=== PATIENT | female | born 1975 | race American Indian/Alaskan Native ===

== ENCOUNTER 2017-04-23 13:44 | Emergency (ER) | payer OTHER ==
--- NOTE | 2017-04-23 14:24 | C.PDOC ---
History Of Present Illness 42 year old female presents to the ED for evaluation of left-sided chest pain which began yesterday and dry, nonproductive cough which began today. Patient describes her pain as sharp and tight and also reports left arm heaviness. Patient admits she recently underwent drama at work and been under a lot of emotional stress. Patient reports loss of appetite, headache, generalized weakness and shortness of breath when laying down. She denies taking medicine for her symptoms as well as fever, chills, palpitations, direct injuries. Patient has not taken any medicine for her pain. Time Seen by Provider: 04/23/17 14:23 Chief Complaint (Nursing): Chest Pain History Per: Patient History/Exam Limitations: no limitations Onset/Duration Of Symptoms: Hrs Current Symptoms Are (Timing): Still Present Severity: Mild Additional History Per: Patient Past Medical History Reviewed: Historical Data, Nursing Documentation, Vital Signs Vital Signs: Last Vital Signs Temp 98.0 F 04/23/17 16:46 Pulse 83 04/23/17 16:46 Resp 18 04/23/17 16:46 BP 130/75 04/23/17 16:46 Pulse Ox 99 04/25/17 19:49 - Medical History PMH: No Chronic Diseases Surgical History: Family History: States: Unknown Family Hx - Social History Hx Alcohol Use: Yes Hx Substance Use: No Review Of Systems Constitutional: Positive for: Weakness, Other (loss of appetite ). Negative for : Fever Cardiovascular: Positive for: Chest Pain (left-sided ). Negative for: Palpitations Respiratory: Positive for: Cough, Shortness of Breath. Negative for: Sputum Musculoskeletal: Positive for: Arm Pain (left) Neurological: Positive for: Headache Physical Exam - Physical Exam Appears: Non-toxic Skin: Normal Color, Warm, Dry Head: Atraumatic, Normacephalic Eye(s): bilateral: Normal Inspection Oral Mucosa: Moist Neck: Supple Chest: Symmetrical, No Deformity, Tenderness (left upper chest wall ) Cardiovascular: Rhythm Regular, No Murmur Respiratory: Normal Breath Sounds, No Rales, No Rhonchi, No Wheezing Extremity: No Normal ROM (limited, secondary to pain with abduction of left shoulder), Capillary Refill (less than 2 seconds ), No Deformity, No Swelling, Other (muscle spasm to left arm ) Neurological/Psych: Oriented x3, Normal Speech Gait: Steady ED Course And Treatment - Laboratory Results Result Diagrams: 04/23/17 15:00 04/23/17 15:00 Lab Interpretation: No Acute Changes ECG: Interpreted By Me, Viewed By Me ECG Rhythm: Sinus Rhythm ECG Interpretation: No Acute Changes Interpretation Of ECG: NS at 93 bpm with noraml axis, no ST schanges or ischemic findings O2 Sat by Pulse Oximetry: 99 (on RA) Pulse Ox Interpretation: Normal - Other Rad CXR X-Ray: Interpreted by Me, Viewed By Me, Read By Radiologist Interpretation: HISTORY: chest pain, cough. COMPARISON: No prior. TECHNIQUE : Chest PA and lateral. FINDINGS: LUNGS: No active pulmonary disease. PLEURA: No significant pleural effusion identified. No pneumothorax apparent. CARDIOVASCULAR: Normal. OSSEOUS STRUCTURES: No significant abnormalities. VISUALIZED UPPER ABDOMEN: Normal. OTHER FINDINGS: None. IMPRESSION: No active disease. Medical Decision Making Medical Decision Making: Impression: 42 year old female with left upper chest wall pain, dry cough Plan: * Bloodwork * UA * CXR * Lactated Ringers IV * reassess and disposition Progress: Bloodwork, UA, CXR ordered and reviewed. Lactated Ringers IV administered. All labs reviewed and unremarkable. CXR shows no acute disease Patient remained well in no distress. No EKG changes, no arrhythmia on satellite project site monitor. clinical scenario unlikely for ACS or PE. Patient is stable for discharge. Disposition Counseled Patient/Family Regarding: Studies Performed, Diagnosis, Need For Followup - Disposition Disposition: HOME/ ROUTINE Disposition Time: 16:26 Condition: GOOD Additional Instructions: Your labs, EKG and chest xray were normal Please take Aspirin, Tylenol or Advil for any pain you may have Follow up with your primary doctor for further evaluation Return to the emergency department at any time if symptoms persist or worsen.Return to the emergency department at any time if symptoms persist or worsen. 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 - Scribe Statement The provider has reviewed the documentation as recorded by the Scribe (Viki Johnson) All medical record entries made by the Scribe were at my direction and personally dictated by me. I have reviewed the chart and agree that the record accurately reflects my personal performance of the history, physical exam, medical decision making, and the department course for this patient. I have also personally directed, reviewed, and agree with the discharge instructions and disposition.
[2017-04-23] MEDS ORDERED: Lactated Ringer's 500 ML IV ONE (14:47)
[2017-04-23 15:06] LABS: BASO # 0.1 K/uL (0.0-0.2); EOS # 0.2 K/uL (0.0-0.7); EOS % 2.6 % (0.0-4.0); HEMATOCRIT 41.8 % (34.0-47.0); LYMPH # 2.9 K/uL (1.0-4.3); LYMPH % 41.4 % (20.0-40.0); MEAN CELL VOLUME 89.1 fL (81.0-99.0); MEAN CORPUSCULAR HEMOGLOBIN 29.9 pg (27.0-31.0); MEAN CORPUSCULAR HGB CONC 33.6 g/dL (33.0-37.0); MEAN PLATELET VOLUME 8.3 fL (7.2-11.7); MONO # 0.6 K/uL (0.0-0.8); MONO % 8.4 % (0.0-10.0); RED CELL DISTRIBUTION WIDTH 14.4 % (11.5-14.5); WHITE BLOOD COUNT 7.1 K/uL (4.8-10.8)
--- NOTE | 2017-04-23 15:06 | RAD ---
HISTORY: chest pain, cough COMPARISON: No prior. TECHNIQUE: Chest PA and lateral FINDINGS: LUNGS: No active pulmonary disease. PLEURA: No significant pleural effusion identified. No pneumothorax apparent. CARDIOVASCULAR: Normal. OSSEOUS STRUCTURES: No significant abnormalities. VISUALIZED UPPER ABDOMEN: Normal. OTHER FINDINGS: None. IMPRESSION: No active disease.
[2017-04-23 15:28] LABS: RBC URINE 2 /hpf (0-3); URINE BILIRUBIN NEGATIVE (NEGATIVE); URINE BLOOD NEGATIVE (NEGATIVE); URINE COLOR Yellow (YELLOW); URINE GLUCOSE (UA) NORMAL (Normal); URINE KETONE NEGATIVE (NEGATIVE); URINE LEUKOCYTE ESTERASE NEG Leu/uL (Negative); URINE PROTEIN NEGATIVE (NEGATIVE); URINE UROBILINOGEN NORMAL mg/dL (0.2-1.0); WBC URINE 2 /hpf (0-5)
[2017-04-23 16:04] LABS: ALB/GLOB RATIO 1.5 (1.0-2.1); ALKALINE PHOSPHATASE 77 U/L (38-126); ALT/SGPT 33 U/L (9-52); AST/SGOT 28 U/L (14-36); BILIRUBIN,TOTAL 0.7 mg/dL (0.2-1.3); BLOOD UREA NITROGEN 11 mg/dL (7-17); CALCIUM 9.5 mg/dl (8.6-10.4); CARBON DIOXIDE 26 mmol/L (22-30); CHLORIDE 100 mmol/L (98-107); CHOLESTEROL 253 mg/dL (0-199); GFR AFRICAN-AMERICAN > 60; GLUCOSE,RANDOM 88 mg/dL (65-105); POTASSIUM 4.1 mmol/L (3.6-5.2); SODIUM 137 mmol/L (132-148); TOTAL PROTEIN 7.9 g/dL (6.3-8.3)
[2017-04-23 16:47] VITALS: BP 130/75; PULSE 83; RESP 18; TEMP 98
--- NOTE | 2017-04-24 13:30 | CARD ---
APPROVED REPORT EKG Measurement Heart [id number] <Conclusion> Normal sinus rhythm Normal ECG
[2017-04-25 19:46] VITALS: O2SAT 99
== END 2017-04-23 17:25 | disposition home or self-care (01) ==
LOC: C.ER 13:44
DX: R07.9 Chest pain, unspecified (principal); F43.9 Reaction to severe stress, unspecified